=== PATIENT | female | born 1975 | race Caucasian/White ===

== ENCOUNTER 2016-03-30 10:40 | Emergency (ER) | payer BC, OTHER ==
[~2016-03-30] VITALS: Ht 152.4 cm; Wt 47.7 kg
[~2016-03-30 10:40] MED LIST: HYDR-5688 PO
[2016-03-30 11:00] VITALS: Ht 152.4 cm; Wt 47.7 kg
[2016-03-30] MEDS ORDERED: ACET325T96 PO (11:37)
[2016-03-30] MEDS ORDERED: KETOROLAC TROMETHAMINE 15 MG/ML VIAL IV ONE (11:45)
[2016-03-30] MEDS ORDERED: SODIUM CHLORIDE 0.9% 1000ML 1,000 ML IV ONE (11:45)
[2016-03-30 12:05] LABS: BASO % 0.3 %; BASO ABS # 0.04 K/uL (0-0.2); COMPLETE YES; EOS % 0.7 %; HEMATOCRIT 39.8 % (37-47); IG% 0.3 %; LYMPH ABS # 2.44 K/uL (1.2-3.4); MEAN CELL VOLUME 92.8 fL (80-100); MEAN CORPUSCULAR HEMOGLOBIN 32.9 pg (25-34); MEAN CORPUSCULAR HGB CONC 35.4 g/dl (32-36); MEAN PLATELET VOLUME 9.5 fL (7.4-10.4); MONO % 5.1 %; NEUT % 77.6 %; PLATELET COUNT 368 K/uL (130-400); RED BLOOD COUNT 4.29 M/uL (4.2-5.4); WHITE BLOOD COUNT 15.24 K/uL (4.8-10.8)
--- NOTE | 2016-03-30 12:15 | DIAGNOSTIC IMAGING REPORT ---
LUMBAR SPINE 5 VIEWS HISTORY: Pain Low back pain COMPARISON: None. FINDINGS: There is no fracture. No subluxation. Disc spaces are preserved. IMPRESSION: No fracture or subluxation within the lumbar spine. Electronically signed by: Reza Tello M.D. 03/30/2016 12:13 PM Dictated Date/Time: 03/30/2016 12:13 PM
[2016-03-30 12:26] LABS: BUN/CREATININE RATIO 16.1 (10-20); CALCIUM 9.1 mg/dl (8.5-10.1); CREATININE 0.64 mg/dl (0.60-1.20); POTASSIUM 3.9 mmol/L (3.5-5.1)
[2016-03-30 12:28] LABS: ALB/GLOB RATIO 0.9 (0.9-2)
[2016-03-30 12:50] LABS: URINE APPEARANCE CLEAR (CLEAR); URINE BILIRUBIN NEG (NEG); URINE COLOR YELLOW; URINE EPITHELIAL CELL AUTO >30 /lpf (0-5); URINE NITRITE NEG (NEG); URINE SPECIFIC GRAVITY 1.021 (1.000-1.030); UROBILINOGEN NEG (NEG); ZZUR CULT IF INDIC CLEAN CATCH YES
[2016-03-30 12:54] LABS: MANUAL MICROSCOPIC REQUIRED? NO; REVIEW REQ? YES
[2016-03-30] MEDS ORDERED: CEFTRIAXONE SOD INJ 1 GM ADDVIAL IV STA (13:38)
[2016-03-30] MEDS ORDERED: HYDR-5688 PO (14:09)
[2016-03-30] MEDS ORDERED: CEFD300C2 PO (14:09)
[2016-03-30 14:28] VITALS: BP 110/77; PULSE 59; TEMP 36.7; O2SAT 100
--- NOTE | 2016-03-31 15:58 | EMERGENCY ROOM VISIT NOTE ---
History First contact with patient: 11:28 Chief Complaint: NEURO SYMPTOMS Stated Complaint: SHARP PAIN IN LWR BACK AND DOWN RT LEG Nursing Triage Summary: see triage note "i just came for back pain and being treated like am dying" History of Present Illness The patient is a 41 year old female who presents to the Emergency Room with complaints of right-sided back/flank pain for the past one to 2 days. The patient states her pain is intermittent and sharp when it occurs. He will occasionally travel down her right leg. She has had increased activity this week, as she is moving furniture. The patient has had a history of UTIs in the past, and does report some dysuria symptoms. The patient has not had fever or chills. No chest pain or shortness of breath. She is not taking anything over- the-counter for her symptoms. She rates her pain a 9/10 that doesn't seem to improve or worsen with position or other activity. Review of Systems More than 10 systems were reviewed and otherwise negative with the exception of history of present illness. Past Medical/Surgical History Medical Problems: (1) Bilateral tubal ligation (2) Bronchitis (3) Diabetes mellitus (4) Kidney stone Family History FH: cancer FH: diabetes mellitus FH: gallbladder disease FH: heart disease FH: hypertension FH: kidney disease FH: seizures Social History Smoking Status: Current Every Day Smoker Alcohol Use: none Drug Use: none Marital Status: in relationship Housing Status: lives with significant other Occupation Status: unemployed Current/Historical Medications Scheduled Cefdinir (Omnicef), 300 MG PO Q12H Scheduled PRN Hydrocodone/Acetaminophen 5MG/325MG ([place] 5MG/325MG), 1-2 TABLET PO Q6 PRN for Pain Naproxen (Naprosyn), 500 MG PO BID PRN for Pain Miscellaneous Medications Acetaminophen Tab (Tylenol), 325 MG PO Allergies Coded Allergies: Tramadol (Verified Allergy, Unknown, ., 03/30/16) rash Physical Exam Vital Signs Date Time Temp Pulse Resp B/P Pulse Ox O2 Delivery O2 Flow Rate FiO2 03/30/16 14:28 36.7 59 16 110/77 100 03/30/16 13:45 59 16 110/77 100 Room Air 03/30/16 13:35 61 18 99 03/30/16 13:30 78 19 99 03/30/16 13:29 109/101 03/30/16 13:25 65 16 99 03/30/16 13:20 64 9 99 03/30/16 13:15 64 18 99 03/30/16 13:10 66 8 100 03/30/16 13:05 63 22 100 03/30/16 13:00 68 20 98 03/30/16 12:59 107/71 03/30/16 12:55 75 15 99 03/30/16 12:50 64 17 100 03/30/16 12:45 75 15 99 03/30/16 12:40 70 22 99 03/30/16 12:35 69 20 99 03/30/16 12:34 110/72 03/30/16 12:30 71 16 99 03/30/16 12:25 70 14 99 03/30/16 12:20 68 20 99 03/30/16 12:19 106/71 03/30/16 12:15 76 21 98 03/30/16 12:10 68 25 95 03/30/16 12:03 113/62 03/30/16 12:02 113/62 03/30/16 12:01 113/62 03/30/16 12:00 113/62 03/30/16 11:59 113/62 03/30/16 11:58 113/62 03/30/16 11:57 113/62 03/30/16 11:56 113/62 03/30/16 11:55 71 22 113/62 03/30/16 11:54 113/62 03/30/16 11:53 113/62 03/30/16 11:52 113/62 03/30/16 11:51 113/62 03/30/16 11:50 76 17 113/62 99 03/30/16 11:49 113/62 03/30/16 11:48 113/62 03/30/16 11:45 79 20 99 03/30/16 11:45 79 03/30/16 11:42 75 18 113/62 100 Room Air 03/30/16 11:42 113/62 03/30/16 11:00 36.7 86 16 105/67 98 Room Air Pain Rating (0-10): 0 Physical Exam VITALS: Vitals are noted on the nurse's note and reviewed by myself. Vital signs stable. GENERAL: Well-developed, well-nourished, white female, who is in no acute distress and resting comfortably. Patient is cooperative with the examination. HEAD: Normocephalic atraumatic. NECK: Supple without nuchal rigidity. No lymphadenopathy. No thyromegaly. Cervical spine is nontender. HEART: Regular rate and rhythm without murmurs gallops or rubs. LUNGS: Clear to auscultation bilaterally without wheezes, rales or rhonchi. No retractions or accessory muscle use. ABDOMEN: Positive normal bowel sounds x 4. Soft, nontender, without masses or organomegaly. No guarding or rebound tenderness. Positive right CVA tenderness. MUSCULOSKELETAL: No muscle atrophy, erythema, or edema noted. Full range of motion without joint tenderness in all extremities. Negative straight leg raise. No saddle paresthesias. Medical Decision & Procedures ER Provider Diagnostic Interpretation: LUMBAR SPINE 5 VIEWS HISTORY: Pain Low back pain COMPARISON: None. FINDINGS: There is no fracture. No subluxation. Disc spaces are preserved. IMPRESSION: No fracture or subluxation within the lumbar spine. Laboratory Results 03/30/16 11:30 Red Blood Count 4.29, Mean Corpuscular Volume 92.8, Mean Corpuscular Hemoglobin 32.9, Mean Corpuscular Hemoglobin Concent 35.4, Mean Platelet Volume 9.5, Neutrophils (%) (Auto) 77.6, Lymphocytes (%) (Auto) 16.0, Monocytes (%) (Auto) 5.1, Eosinophils (%) (Auto) 0.7, Basophils (%) (Auto) 0.3, Neutrophils # (Auto) 11.84, Lymphocytes # (Auto) 2.44, Monocytes # (Auto) 0.78, Eosinophils # (Auto) 0.10, Basophils # (Auto) 0.04 03/30/16 11:30 Test 03/30/16 11:30 03/30/16 12:20 White Blood Count 15.24 K/uL (4.8-10.8) Red Blood Count 4.29 M/uL (4.2-5.4) Hemoglobin 14.1 g/dL (12.0-16.0) Hematocrit 39.8 % (37-47) Mean Corpuscular Volume 92.8 fL (80-100) Mean Corpuscular Hemoglobin 32.9 pg (25-34) Mean Corpuscular Hemoglobin Concent 35.4 g/dl (32-36) Platelet Count 368 K/uL (130-400) Mean Platelet Volume 9.5 fL (7.4-10.4) Neutrophils (%) (Auto) 77.6 % Lymphocytes (%) (Auto) 16.0 % Monocytes (%) (Auto) 5.1 % Eosinophils (%) (Auto) 0.7 % Basophils (%) (Auto) 0.3 % Neutrophils # (Auto) 11.84 K/uL (1.4-6.5) Lymphocytes # (Auto) 2.44 K/uL (1.2-3.4) Monocytes # (Auto) 0.78 K/uL (0.11-0.59) Eosinophils # (Auto) 0.10 K/uL (0-0.5) Basophils # (Auto) 0.04 K/uL (0-0.2) RDW Standard Deviation 43.0 fL (36.4-46.3) RDW Coefficient of Variation 12.8 % (11.5-14.5) Immature Granulocyte % (Auto) 0.3 % Immature Granulocyte # (Auto) 0.04 K/uL (0.00-0.02) Anion Gap 8.0 mmol/L (3-11) Est Creatinine Clear Calc Drug Dose 83.1 ml/min Estimated GFR () 128.5 Estimated GFR (Non- 110.8 BUN/Creatinine Ratio 16.1 (10-20) Calcium Level 9.1 mg/dl (8.5-10.1) Total Bilirubin 0.2 mg/dl (0.2-1) Aspartate Amino Transf (AST/SGOT) 26 U/L (15-37) Alanine Aminotransferase (ALT/SGPT) 32 U/L (12-78) Alkaline Phosphatase 103 U/L (45-117) Total Protein 7.5 gm/dl (6.4-8.2) Albumin 3.5 gm/dl (3.4-5.0) Globulin 4.0 gm/dl (2.5-4.0) Albumin/Globulin Ratio 0.9 (0.9-2) Lipase 134 U/L (73-393) Urine Color YELLOW Urine Appearance CLEAR (CLEAR) Urine pH 7.0 (4.5-7.5) Urine Specific [place] 1.021 (1.000-1.030) Urine Protein NEG (NEG) Urine Glucose (UA) NEG (NEG) Urine Ketones NEG (NEG) Urine Occult Blood 2+ (NEG) Urine Nitrite NEG (NEG) Urine Bilirubin NEG (NEG) Urine Urobilinogen NEG (NEG) Urine Leukocyte Esterase MODERATE (NEG) Urine WBC (Auto) >30 /hpf (0-5) Urine RBC (Auto) 10-30 /hpf (0-4) Urine Hyaline Casts (Auto) 5-10 /lpf (0-5) Urine Epithelial Cells (Auto) >30 /lpf (0-5) Urine Bacteria (Auto) NEG (NEG) Urine Renal Epithelial Cells 0-5 /lpf (0-5) Date/Time Source Procedure Growth Status 03/30/16 12:20 Urine , Clean Catch Urine Culture - Final THREE TYPES OF ORGANSIMS PRESENT, ALL... Complete Medications Administered Medications (Trade) Dose Ordered Sig/Jadyn Route Start Time Stop Time Status Last Admin Dose Admin Ketorolac Tromethamine 15 mg 15 mg NOW ONCE IV 03/30/16 11:45 03/30/16 11:46 DC 03/30/16 12:21 15 MG Sodium Chloride (Nss 1000ml) 1,000 ml @ 999 mls/hr Q1H1M ONCE IV 03/30/16 11:45 03/30/16 12:45 DC 03/30/16 12:22 999 MLS/HR Ceftriaxone Sodium (Rocephin Inj) 1 gm NOW STAT IV 03/30/16 13:38 03/30/16 13:39 DC 03/30/16 13:50 1 GM ED Course Physical exam and history were performed. Nursing notes and EMR were reviewed. Patient appears to have right-sided flank/back pain for the past one day. Her symptoms are not reproducible on palpation or with movement. She does describe some sciatic-like radiation down her leg however. She is also with some dysuric symptoms. IV access was established and labs were obtained. The patient was medicated as above. Plain films of her lumbar spine were performed. The patient's blood work is as above and was reviewed. She does have a mildly elevated white blood cell count. She is without significant anemia, bandemia, or gross electrolyte imbalance. Her urine is highly suggestive of a urinary tract infection with culture pending at the time of this dictation. The patient x-ray does not show acute findings. Overall the patient did have improvement of her symptoms after pain medication here in the department. Clinically she may have some low back sprain/strain while moving furniture this week, however her workup today is much more suggestive of a UTI and uncomplicated pyelonephritis. The patient was given a dose of Rocephin here in the department. She will be transitioned to oral Omnicef for the next several days. I will give her a short course of Vicodin for pain control. The patient is to follow with her primary care physician in the next few days for recheck of her condition. She was otherwise invited back to the ER with any new, worsening, or concerning symptoms. The chart was completed utilizing [employer] Speech Voice Recognition Software. Grammatical errors, random word insertions, pronoun errors, and incomplete sentences are an occasional consequence of this system due to software limitations, ambient noise, and hardware issues. Any formal questions or concerns about the content, text, or information contained within the body of this dictation should be directly addressed to the provider for clarification. . Medical Decision Differential diagnosis: Etiologies such as musculoskeletal, UTI, pyelonephritis, disc herniation, fracture, aortic disease, metastatic disease, cord compression, discitis, infection, renal colic, gastrointestinal, acute exacerbation of chronic back pain, sciatica, cauda equina, as well as others were entertained. Impression Primary Impression: Pyelonephritis Additional Impression: Back pain Departure Information Dispostion Home / Self-Care Condition GOOD Prescriptions Cefdinir (OMNICEF) 300 Mg Cap 300 MG PO Q12H for 9 Days, #18 CAP Prov: Cruz De Leon PA-C 03/30/16 Hydrocodone/Acetaminophen 5MG/325MG ([place] 5MG/325MG) Tab 1-2 TABLET PO Q6 Y for Pain, #12 TAB For Initial Treatment Prov: Cruz De Leon PA-C 03/30/16 Forms HOME CARE DOCUMENTATION FORM, IMPORTANT VISIT INFORMATION Patient Instructions My [facility] Additional Instructions You were seen and evaluated today on an emergency basis only. This is not a substitute for, or an effort to provide, complete comprehensive medical care. It is not possible to recognize and treat all injuries or illnesses in a single emergency department visit. For this reason it is recommended that you followup with your primary care physician this next week for ongoing care and evaluation. For baseline pain relief you may alternate ibuprofen and acetaminophen every 4 hours for pain control. Take 600 mg ibuprofen (Advil) and then 4 hours later take 1000 mg acetaminophen (Tylenol). Do not take more than 3000 mg acetaminophen in a single day. [place] (hydrocodone/acetaminophen) 5/325 mg every 6 hours as needed for worsening breakthrough pain. Do not drink or drive on [place]. This medication will likely make you tired. Do not take [place] and Tylenol at the same time as both contain acetaminophen. [place] may cause constipation. You may wish to take an ahma-cmy-jphvoqa stool softener like Colace if this occurs. Take Omnicef 300 mg twice daily for the next 9 days Rest and slowly return to activity as tolerated. Do not lift greater than 10 pounds for the next week. You are welcome to return to the emergency department anytime with new, worsening, or concerning symptoms. Problem Qualifiers
== END 2016-03-30 14:29 | disposition home or self-care (01) ==
LOC: C.EDB 10:42 → C.EDC 14:29
DX: N12 Tubulo-interstitial nephritis, not specified as acute or chronic (principal); E11.9 Type 2 diabetes mellitus without complications; Z87.442 Personal history of urinary calculi; Z87.440 Personal history of urinary (tract) infections; F17.200 Nicotine dependence, unspecified, uncomplicated; Z98.51 Tubal ligation status; Z83.3 Family history of diabetes mellitus; Z82.0 Family history of epilepsy and other diseases of the nervous system; Z82.49 Family history of ischemic heart disease and other diseases of the circulatory system

== ENCOUNTER 2016-05-31 15:27 | Emergency (ER) | payer BC, OTHER ==
[~2016-05-31] VITALS: Ht 152.4 cm; Wt 50.0 kg
[~2016-05-31 15:27] MED LIST changes: +ACET325T96 PO
[2016-05-31 15:53] VITALS: TEMP 36.5; Ht 152.4 cm; Wt 50.0 kg
[2016-05-31] MEDS ORDERED: NAPR-1169 PO (16:00)
[2016-05-31] MEDS ORDERED: SODIUM CHLORIDE 0.9% 1000ML 1,000 ML IV STA (16:08)
[2016-05-31] MEDS ORDERED: AMOXICILLIN/CLAVULANATE TAB 875 MG TAB PO ONE (16:45)
[2016-05-31 16:49] VITALS: BP 114/72; PULSE 65; O2SAT 98
[2016-05-31] MEDS ORDERED: AMOX875T PO (16:55)
[2016-05-31] MEDS ORDERED: FLUC150T PO (16:55)
--- NOTE | 2016-05-31 16:56 | EMERGENCY ROOM VISIT NOTE ---
ED Visit Note First contact with patient: 16:00 Chief Complaint: LEFT Great Toe Ingrown Toenail History of Present Illness: This patient is a 41-year-old female who presents to the Emergency Department this afternoon for evaluation of their LEFT Great Toe Ingrown Toenail. Patient reports that they have been experiencing pain over the medial aspect of the LEFT Great Toe for 1.5 weeks. They report that the toenail was excised one week ago with success.They have had previous ingrown toenails in the past. They deny any numbness or tingling into the distal extremity. They have tried upko-jbt-buqofpu medications and warm soaks for the pain with moderate relief of their symptoms. Patient rates her current discomfort as an 8/10. Patients Tetanus status is currently up-to-date. Patient is not a diabetic. Medications: Reviewed and discussed with the patient. Allergies: Tramadol PMH: As above. SHx: Patient is a 41-year-old female who lives locally. ROS: All pertinent positive and negative review of systems are appropriately documented in the History of Present Illness. Physical Exam: VITAL SIGNS Vital signs and nursing notes were reviewed. GENERAL 41-year-old female appearing her stated age who is in no acute distress. Communicates well with provider and answers questions appropriately. MUSCULOSKELETAL There is mild edema and erythema noted on the to the medial surface aspect of the LEFT distal Great Toe. This area is moderately tender to palpation. There is no purulent drainage appreciated. Mild erythema extending up the toe. No lymphangitic streaking appreciated. Patient with full range of motion of the toe. Previous excision well healing. NEUROLOGIC Spinothalamic tract was found to be intact with ability to discriminate sharp versus dull sensation throughout the LEFT great toe and foot. No sensory defects of the dorsal column were appreciated utilizing light touch for evaluation. VASCULAR Capillary refill was brisk. ED Course: Patient was seen and evaluated by myself. Patient had previous excision of the LEFT great toenail. This is well healing, however there is been reported redness and redness on exam. There is been purulent discharge which I am unable to appreciate. Regardless, the patient will be placed on Augmentin for the next few days. She will continue warm soaks. She will return for changing/ worsening symptoms. Patient discharged home afebrile and in good condition. In the evaluation and treatment of this patient, the following differential diagnoses were considered: Dermatitis, foreign body, osteomyelitis, amongst others. Impression: LEFT Great Toe Cellulitis Discharge Instructions: You have been seen in the Emergency Department today for your LEFT Great Toe Cellulitis. Please keep the toe covered with antibiotic ointment and a bandage for the next week. Proper wound care is essential for adequate wound healing and infection prevention. You can soak the foot/toe in an Epsom Salt bath or warm soapy water for comfort. Look for signs of infection of the wound including: increased pain, swelling, foul discharge, streaking, or increased temperature. If any of these are noticed you should return to the Emergency Department for further assessment and treatment. As with any removal of nail tissue, there is potential that you may not re-grow this portion of the nail. This may or may not be permanent. You were prescribed Augmentin to be taken as prescribed. This is an antibiotic. All antibiotics have the potential to cause diarrhea. Stop this medication and contact a medical provider if you were to develop any significant adverse side effects including: wheezing, shortness of breath, passing out, vomiting, or a diffuse rash. Always take antibiotics as directed and COMPLETE the ENTIRE course regardless of the improvement of your symptoms. For pain control, you can use the following ownq-cvo-mhrnagz medicines (if >12 yo): - Regular strength (325mg/tab) Tylenol (acetaminophen) 2 tabs every 4-6 hours as needed. Do not exceed 12 tablets in a 24 hour period. Avoid taking more than 4 grams (4000 mg) of Tylenol per day. This includes any other sources of acetaminophen you may take on a regular basis. - Regular strength (200 mg/tab) Advil (ibuprofen) 1-2 tabs every 4-6 hours as needed. Do not exceed a dose of 3200 mg per day. Return to the emergency department if your symptoms worsen despite treatment course outlined above. Problem List Medical Problems: (1) Bilateral tubal ligation Status: Chronic (2) Bronchitis Status: Resolved (3) Diabetes mellitus Status: Chronic (4) Kidney stone Status: Resolved Current/Historical Medications Scheduled Amoxicillin & Pot Clavulanate (Augmentin 875-125 mg), 875 MG PO BID Fluconazole (Diflucan), 150 MG PO DAILY Scheduled PRN Naproxen (Naprosyn), 500 MG PO BID PRN for Pain Allergies Coded Allergies: Tramadol (Verified Allergy, Unknown, ., 03/30/16) rash Vital Signs Date Time Temp Pulse Resp B/P Pulse Ox O2 Delivery O2 Flow Rate FiO2 05/31/16 16:49 65 18 114/72 98 05/31/16 15:53 36.5 68 16 121/76 99 Medications Administered Medications (Trade) Dose Ordered Sig/Ajdyn Route Start Time Stop Time Status Last Admin Dose Admin Amoxicillin/ Clavulanate Potassium (Augmentin Tab) 875 mg ONE ONCE PO 05/31/16 16:45 05/31/16 16:46 DC 05/31/16 16:49 875 MG Departure Information Impression Primary Impression: Ingrowing toenail with infection Dispostion Home / Self-Care Condition GOOD Prescriptions Fluconazole (DIFLUCAN) 150 Mg Tab 150 MG PO DAILY, #2 TAB May repeat dose in 3 days if symptoms return. Prov: Rolando Quevedo PA-C 05/31/16 Amoxicillin & Pot Clavulanate (Augmentin 875-125 mg) 1 Tab Tab 875 MG PO BID for 10 Days, #20 TAB Prov: Rolando Quevedo PA-C 05/31/16 Referrals No Doctor, Assigned (PCP) Patient Instructions My [facility] Additional Instructions You have been seen in the Emergency Department today for your LEFT Great Toe Cellulitis. Please keep the toe covered with antibiotic ointment and a bandage for the next week. Proper wound care is essential for adequate wound healing and infection prevention. You can soak the foot/toe in an Eps[place] Salt bath or warm soapy water for comfort. Look for signs of infection of the wound including: increased pain, swelling, foul discharge, streaking, or increased temperature. If any of these are noticed you should return to the Emergency Department for further assessment and treatment. As with any removal of nail tissue, there is potential that you may not re-grow this portion of the nail. This may or may not be permanent. You were prescribed Augmentin to be taken as prescribed. This is an antibiotic. All antibiotics have the potential to cause diarrhea. Stop this medication and contact a medical provider if you were to develop any significant adverse side effects including: wheezing, shortness of breath, passing out, vomiting, or a diffuse rash. Always take antibiotics as directed and COMPLETE the ENTIRE course regardless of the improvement of your symptoms. For pain control, you can use the following lxqa-slw-zjauxud medicines (if >12 yo): - Regular strength (325mg/tab) Tylenol (acetaminophen) 2 tabs every 4-6 hours as needed. Do not exceed 12 tablets in a 24 hour period. Avoid taking more than 4 grams (4000 mg) of Tylenol per day. This includes any other sources of acetaminophen you may take on a regular basis. - Regular strength (200 mg/tab) Advil (ibuprofen) 1-2 tabs every 4-6 hours as needed. Do not exceed a dose of 3200 mg per day. Return to the emergency department if your symptoms worsen despite treatment course outlined above.
== END 2016-05-31 17:04 | disposition home or self-care (01) ==
LOC: C.EDB 15:29 → C.EDD 17:04
DX: L60.0 Ingrowing nail (principal); L03.032 Cellulitis of left toe; E11.9 Type 2 diabetes mellitus without complications; Z87.442 Personal history of urinary calculi